=== PATIENT | male | born 1970 | race Caucasian/White ===

== ENCOUNTER 2017-07-23 03:24 | Emergency (ER) | payer MEDICAID ==
[~2017-07-23] VITALS: Ht 177.8 cm; Wt 72.5 kg
[~2017-07-23 03:24] MED LIST: QUET300T2 PO; SERT50TA12 PO
[2017-07-23] MEDS ORDERED: CEFTAROLINE 600 MG/D5W 250 ML IV ONE (04:00)
[2017-07-23] MEDS ORDERED: IBUPROFEN 800 MG TABLET PO ONE (04:00)
[2017-07-23 05:24] VITALS: BP 126/82
[2017-07-23] MEDS ORDERED: HYDROCODONE/ACETAMINOPHEN 5-325 MG TABLET PO ONE (05:30)
== END 2017-07-23 05:36 | disposition home or self-care (01) ==
LOC: EMS 03:25
DX: L03.114 Cellulitis of left upper limb (principal); B19.20 Unspecified viral hepatitis C without hepatic coma; F19.10 Other psychoactive substance abuse, uncomplicated; F12.90 Cannabis use, unspecified, uncomplicated; F14.90 Cocaine use, unspecified, uncomplicated; F17.210 Nicotine dependence, cigarettes, uncomplicated
CPT/HCPCS: 36415; 87040; 96365; 99284; J0712

== ENCOUNTER 2017-10-22 21:05 | Emergency (ER) | payer MEDICAID ==
[~2017-10-22] VITALS: Ht 175.3 cm; Wt 68.2 kg
[2017-10-22] MEDS ORDERED: DOXYCYCLINE 100 MG CAPSULE PO ONE (23:30)
[2017-10-22] MEDS ORDERED: IBUPROFEN 800 MG TABLET PO ONE (23:30)
[2017-10-22] MEDS ORDERED: AMOX TR/POT CLAV 875 MG/125 MG TABLET PO ONE (23:30)
[2017-10-22] MEDS ORDERED: OxyCODONE HCL/ACETAMINOPHEN 5-325 MG TABLET PO ONE (23:30)
[2017-10-23 01:58] VITALS: BP 129/65
== END 2017-10-23 02:15 | disposition home or self-care (01) ==
LOC: EMS 21:07
DX: L03.113 Cellulitis of right upper limb (principal); F20.9 Schizophrenia, unspecified; F31.9 Bipolar disorder, unspecified; F17.210 Nicotine dependence, cigarettes, uncomplicated; Z86.19 Personal history of other infectious and parasitic diseases; Z71.6 Tobacco abuse counseling; Z59.0 Homelessness
CPT/HCPCS: 93971; 99284; 99406

== ENCOUNTER 2017-11-19 21:09 | Emergency (ER) | payer MEDICAID ==
[~2017-11-19] VITALS: Ht 177.8 cm; Wt 82.0 kg
[2017-11-19] MEDS ORDERED: GENTAMICIN SULFATE 160 MG in DEXTROSE 5%-WATER 100 ML IV ONE (22:15)
[2017-11-19] MEDS ORDERED: CefTRIAXone SODIUM 2 GM in DEXTROSE 5%-WATER 20 ML IV ONE (22:15)
[2017-11-19] MEDS ORDERED: DOXYCYCLINE 100 MG CAPSULE PO ONE (22:15)
[2017-11-20 00:30] VITALS: BP 138/70
== END 2017-11-20 01:10 | disposition home or self-care (01) ==
LOC: EMS 21:12
DX: L03.114 Cellulitis of left upper limb (principal); F11.20 Opioid dependence, uncomplicated; F17.210 Nicotine dependence, cigarettes, uncomplicated; F20.9 Schizophrenia, unspecified; B19.20 Unspecified viral hepatitis C without hepatic coma; F10.10 Alcohol abuse, uncomplicated; Z71.6 Tobacco abuse counseling
CPT/HCPCS: 96365; 96375; 99284; 99406; J0696; J1580; J7060 ×2